=== PATIENT | female | born 1945 | race Caucasian/White ===

== ENCOUNTER → 2024-01-21 17:56 | Outpatient (REF) | payer MEDICARE, OTHER, SELFPAY | LOC: PAVMRI 17:56 | PROVIDERS: ATTENDING PHYSICIAN Physician Assistant Surgical; FAMILY PHYSICIAN Family Medicine | DX: M25.552 Pain in left hip (principal) | CPT/HCPCS: 73721 ==

== ENCOUNTER → 2024-01-30 10:50 | Outpatient (REF) | payer MEDICARE, OTHER, SELFPAY ==
[2024-01-30 12:24] LABS: % Basophils 0.9 % (0-2); % Eosinophils 3.7 % (0-6); % Immature Granulocytes 0.3 % (0-0.5); % Lymphocytes 18.7 % (20.5-51.1); % Monocytes 10.5 % (1.7-9.3); % Neutrophils 65.9 % (42.2-75.2); Absolute Basophils 0.1 10^3/uL (0-0.2); Absolute Eosinophils 0.3 10^3/uL (0-0.7); Absolute Lymphocytes 1.5 10^3/uL (1.2-3.4); Absolute Monocytes 0.8 10^3/uL (0.1-0.6); Absolute Neutrophils 5.2 10^3/uL (1.4-6.5); Hematocrit 47.7 % (37.0-47.0); Hemoglobin 15.6 g/dL (12.0-16.0); Mean Corp Hgb Conc. 32.7 g/dL (33.0-37.0); Mean Corpuscular Hgb 30.7 pg (27.0-31.0); Mean Corpuscular Volume 93.9 fL (81.0-99.0); Mean Platelet Volume 9.4 fL (7.4-10.4); Nucleated Red Blood Cells % 0 %; Platelet Count 301 10^3/uL (130-400); Red Blood Cell Count 5.08 10^6/uL (4.20-5.40); Red Cell Dist. Width 12.6 % (11.5-14.5); White Blood Cell Count 7.8 10^3/uL (4.8-10.8)
[2024-01-30 12:52] LABS: ALT (SGPT) 28 U/L (0-35); AST (SGOT) 35 U/L (14-36); Albumin 4.6 g/dl (3.5-5.0); Alkaline Phosphatase 104 U/L (38-126); Blood Urea Nitrogen 24 mg/dl (7-17); Calcium 9.8 mg/dl (8.4-10.2); Carbon Dioxide 29 mmol/L (22-30); Chloride 101 mmol/L (98-107); Glucose 128 mg/dl (70-99); HDL Cholesterol 32 mg/dl; LDL Cholesterol, Calculated 71 mg/dl; Potassium 4.9 mmol/L (3.5-5.1); Sodium 139 mmol/L (135-145); Total Bilirubin 1.4 mg/dl (0.2-1.3); Total Cholesterol 159 mg/dl (50-199); Total Protein 7.5 g/dl (6.3-8.2); Triglyceride 282 mg/dl (10-149); Very Low Density Lipoprotein 56 mg/dl (0-30); eGFR > 60.00
[2024-01-30 13:49] LABS: Glycohemoglobin (HgbA1c) 6.2 % (4.0-5.6)
== END ==
LOC: REG 10:50
PROVIDERS: ATTENDING PHYSICIAN Physician Assistant; FAMILY PHYSICIAN Family Medicine
DX: R30.0 Dysuria (principal); I10 Essential (primary) hypertension; E78.1 Pure hyperglyceridemia; R73.03 Prediabetes; K21.9 Gastro-esophageal reflux disease without esophagitis; F51.01 Primary insomnia
CPT/HCPCS: 36415; 80053; 80061; 83036; 85025

== ENCOUNTER 2024-01-31 22:30 | Emergency (ER) | payer MEDICARE, OTHER, SELFPAY ==
[2024-01-31 22:32] VITALS: BP 175/96; BMI 24.1
[2024-01-31 22:46] LABS: Urine Albumin 1+ (Neg - Trace); Urine Bilirubin Negative (Negative); Urine Character Very Cloudy (Clear); Urine Color Yellow; Urine Glucose Negative (Negative); Urine Ketone Negative (Negative); Urine Leukocyte 2+ (Negative); Urine Nitrite Negative (Negative); Urine Occult Blood 4+ (Negative); Urine Specific Gravity 1.025 (<1.030); Urine Urobilinogen Negative (Neg - 1+)
[2024-01-31 22:52] LABS: Urine Bacteria Few (Negative); Urine Red Blood Cell 50-60 /HPF (0-2)
[2024-02-01 00:12] VITALS: BP 136/79
--- NOTE | 2024-02-01 00:53 | ED.GENMED ---
History of Present Illness
General
Chief Complaint: Urinary Symptoms
Source: patient
Exam Limitations: none
Time Seen by Provider: 02/01/24 00:23
History of Present Illness
History of Present Illness:
This is a 78 year old female that comes in with c/o urinary frequency. States that they were at a picnic and last evening around 7pm she started with urinary burning and frequency. States that she also has this pressure feeling. States that she
just had a UTI one month ago and was on Macrobid. Denies any fever, chills, chest pain, SOB, abd pain, nausea, vomiting, diarrhea, headache, dizziness.
Past History
Past History
ED Past Medical History: Negative Asthma, HTN, Hypercholesterolemia or NIDDM
ED Past Surgical History: Gynecological (D&C) and Tonsilectomy
Social History
Tobacco: Non-smoker
Alcohol: Occasional
Drug: None
Personal:
Living: with family
Employment: Retired
Family History
Family History: Hypertension
Review of Systems
Review of Systems
All Other Systems: ROS reviewed and negative except as documented in HPI and ROS
Constitutional: Reports no symptoms; Denies fever or chills
EENT: Reports no symptoms
Respiratory: Reports no symptoms; Denies cough or trouble breathing
Cardiac: Reports no symptoms; Denies chest pain
ABD/GI: Reports no symptoms; Denies abdominal pain, nausea, vomiting or diarrhea
: Reports dysuria, frequency and urgency
Musculoskeletal: Reports no symptoms
Skin: Reports no symptoms
Neurological: Reports no symptoms; Denies dizzy or headache
Psychiatric: Reports no symptoms
Phy Exam
General Physical Exam
General Presentation: well appearing and no apparent distress
General age: appears stated age
General Skin: warm and dry
General Habitus: elderly
General Mental: alert
General Hydration: appears well hydrated
ENT Exam
ENT Exam: TM's normal, pharynx normal and neck supple
Eye Exam
Eye Exam: EOMI
Cardiovascular Exam
Cardiovascular Exam: regular rate/rhythm, no edema, no murmur and normal peripheral pulses
Pulmonary Exam
Pulmonary Exam: lungs clear, no respiratory distress, no rales, chest non tender, no crackles, no rhonchi, no wheezing and no cough
Gastrointestinal Exam
Gastrointestinal Exam: normal bowel sounds, non tender, soft, no organomegaly, no pulsatile mass and non distended
Musculoskeletal Exam
Musculoskeletal Exam: full ROM and no edema
Skin Exam
Skin Exam: normal color, warm/dry, no rash and no petechia
Psychiatric Exam
Psychiatric Exam: normal mood/affect
Course
Orders/Labs/Results
Orders:
Orders
01/31/24 22:34
Urinalysis Reflex To Culture Urgent
Date Specimen was Collected: 01/31/24
Time Specimen was Collected: 22:33
Urine Microscopic Reflex Cult Urgent
Urine Culture Urgent
MARICHUY Source: U
Specimen Description:
Date Specimen was Collected: 01/31/24
Time Specimen was Collected: 22:33
02/01/24 00:52
CT Abd/pel Without Iv Or Oral Urgent
Comment:
Reason For Exam: lOWER ABD PAIN PRESSURE, BLOOD IN THE URINE,
Abnormal Lab Results
01/31/24
22:34
Ur Occult Blood Reflex 4+ A
(Negative)
Leukocyte Esterase Rfl 2+ A
(Negative)
Urine RBC 50-60 A /HPF
(0-2)
Urine WBC (Reflex) 11-15 A /HPF
(0-5)
Urine Bacteria (Reflex) Few A
(Negative)
Urine Albumin (Reflex) 1+ A
(Neg - Trace)
Urine questionable for infection.
Vital Signs
Initial and Last Documented VS:
Initial Vital Signs
Temp Pulse Resp BP Pulse Ox
98 F 84 16 175/96 98
01/31/24 22:32 01/31/24 22:32 01/31/24 22:32 01/31/24 22:32 01/31/24 22:32
Last Documented Vital Signs
Temp Pulse Resp BP Pulse Ox
98 F 84 16 158/79 97
01/31/24 22:32 01/31/24 22:32 01/31/24 22:32 02/01/24 02:04 02/01/24 02:05
MDM/Problems Addressed
Differential Diagnosis Includes:
UTi, Renal calculus
MDM/Problems Addressed:
This is a 78 year old female that comes in with c/o urinary burning and pressure. States that this started last evening and she has burning with pressure. State that she just had a UTI last month and was on Macrobid.
Explained to patient that her urine is questionable and that there is a lot of blood. Will get CT to make sure no renal calculus that is causing her to get UTI.
CT cont- Probable perinephric cysts noted in the left kidney, incompletely evaluated without contrast. Atherosclerosis. Degenerative changes are noted on the spine and hips.
back into see patient. Explained that her CT is negative for any renal calculus. There is some diverticulosis but no diverticulitis. There is a left renal cyst. Will give patient an antibiotic for the UTI and encouraged her to increase her water
intake. Follow up with the PCP for repeat urine. Patient to return with any concerns.
Chronic conditions affecting care:
NA
Acute Exacerbation and/or Progression of Chronic Illness:
NA
*Radiology
Radiology exam reviewed: radiology read reviewed (CT night hawk- No evidence of obstructing ureteral calculus. No evidence of clinically significant hydronephrosis or hydroureter. Please note pyelonephritis is not well evaluated for on CT without
the administration of iodinated contrast. Bladder is partially contracted at time of examination and ), all reviewed NAD by ED Provider (CT cont- urinary tract infection is not excluded. If clinical suspicion for UTI, would recommend correlation
with urinalysis. No other evidence of acute CT abnormality to explain patient abd symptoms. Incidental findinigs: No CT evidence of cholecystitis. The appendix is not confidently identified, ) and other (CT cont-however no evidence of appendicitis
is seen. Extensive diverticulosis is noted of the distal colon without evidence of focal diverticulitis. The distal colon is contracted at time of examination which decreases sensitivity and specificity of examination. MIld distal colitis not
excluded. )
*Pulse Oximetry
Patient hypoxic: no
*EKG
Interpreted by ED Provider?: NA
Rate: EKG- N/A
*Body Shop Estimator Interpretation
Rate: Body Shop Estimator- N/A
*Critical Care Note
Total Time (30-74mins, 75-104mins- exclusive of procedures): Not Applicable
ED Attending Note
-
Portions of this chart may have been created with voice recognition software.� Occasional wrong word or��sound alike� substitutions may have occurred due to the inherent limitations of voice recognition software.
Discharge Plan
Departure
Patient Disposition: Home (Routine Discharge)
Date of Disposition: 02/01/24
Time of Disposition: 02:39
Patient with high blood pressure during this ER visit?: Yes
Condition: Good
Covid-19: Not Applicable
Discharge Problem:
Urinary tract infection
Instructions: Urinary Tract Infection, Adult (DC), BLOOD PRESSURE
Prescriptions:
No Action
loratadine 10 MG tablet
10 mg PO DAILY
multivitamin [Multi-Day] 1 EACH tablet
1 ea PO DAILY
lisinopril [Prinivil] 10 MG tablet
10 mg PO DAILY
zaleplon [Sonata] 5 MG capsule
5 mg PO HS PRN (Reason: sleep)
calcium-vitamin D3-vitamin K [Citracal-D3 Soft Chew] 1 EACH tablet,chewable
2 tab PO DAILY
Patient Comments:
patient sts takes 800mg
Referrals:
Monica Tapia MD [Family Provider] - Follow up in 1 week
Activity Restrictions/Additional Instructions:
As discussed, your CT is negative for any renal calculus. There is diverticulosis and a left renal cyst. You have been given your antibiotic here and this is a one time antibiotic and done. Please follow up with the family doctor for recheck and a
repeat urine in 1 week. IF YOU HAVE ANY FEVER, INCREASED BURNING WITH URINATION OR ANY OTHER CONCERNS PLEASE RETURN TO THE EMERGENCY ROOM.
Interventions
Interventions:
*Risk Screen - Suicide Last Done: 01/31/24 22:32
*General Assessment Last Done: 02/01/24 00:14
*Neglect/Abuse Screening Last Done: 01/31/24 22:32
*ED COVID-19 Vaccine History Last Done: 02/01/24 00:11
ED-Female Genitourinary Assessment Last Done: 02/01/24 00:11
Discharge Date and Time
Print Language: [id number]
[2024-02-01 02:04] VITALS: BP 158/79
[2024-02-01] MEDS: MONUROL 3 GM PO (02:50)
== END 2024-02-01 03:01 | disposition home or self-care (01) ==
LOC: EMR 22:30
PROVIDERS: Emergency Medicine; EMERGENCY PHYSICIAN Student in an Organized Health Care Education/Training Program; FAMILY PHYSICIAN Family Medicine
DX: N39.0 Urinary tract infection, site not specified (principal); Z82.49 Family history of ischemic heart disease and other diseases of the circulatory system; Z87.440 Personal history of urinary (tract) infections; Z90.49 Acquired absence of other specified parts of digestive tract
CPT/HCPCS: 99284; 74176; 81003; 81015; 87077; 87086

== ENCOUNTER → 2024-03-16 09:46 | Outpatient (REF) | payer MEDICARE, OTHER, SELFPAY | LOC: RAD 09:46 | PROVIDERS: ATTENDING PHYSICIAN Family Medicine | DX: S20.212A Contusion of left front wall of thorax, initial encounter (principal); R07.81 Pleurodynia | CPT/HCPCS: 71101 ==

== ENCOUNTER → 2024-08-12 14:17 | Outpatient (REF) | payer MEDICARE, OTHER, SELFPAY | LOC: WDC 14:17 | PROVIDERS: ATTENDING PHYSICIAN Obstetrics & Gynecology Gynecology; FAMILY PHYSICIAN Family Medicine | DX: M85.89 Other specified disorders of bone density and structure, multiple sites (principal); Z01.419 Encounter for gynecological examination (general) (routine) without abnormal findings; Z12.31 Encounter for screening mammogram for malignant neoplasm of breast | CPT/HCPCS: 77063; 77067 ==

== ENCOUNTER → 2025-01-21 10:54 | Outpatient (REF) | payer MEDICARE, OTHER, SELFPAY ==
[2025-01-21 11:34] LABS: % Eosinophils 4.7 % (0-6); % Immature Granulocytes 0.4 % (0-0.5); % Lymphocytes 20.4 % (20.5-51.1); % Neutrophils 62.5 % (42.2-75.2); Absolute Basophils 0.1 10^3/uL (0-0.2); Absolute Eosinophils 0.3 10^3/uL (0-0.7); Absolute Lymphocytes 1.4 10^3/uL (1.2-3.4); Absolute Monocytes 0.8 10^3/uL (0.1-0.6); Absolute Neutrophils 4.4 10^3/uL (1.4-6.5); Hematocrit 48.7 % (37.0-47.0); Hemoglobin 16.6 g/dL (12.0-16.0); Mean Corp Hgb Conc. 34.1 g/dL (33.0-37.0); Mean Corpuscular Hgb 31.7 pg (27.0-31.0); Mean Corpuscular Volume 92.9 fL (81.0-99.0); Mean Platelet Volume 9.3 fL (7.4-10.4); Nucleated Red Blood Cells % 0 %; Platelet Count 314 10^3/uL (130-400); Red Blood Cell Count 5.24 10^6/uL (4.20-5.40); Red Cell Dist. Width 12.2 % (11.5-14.5)
[2025-01-21 11:54] LABS: ALT (SGPT) 29 U/L (0-35); AST (SGOT) 30 U/L (14-36); Albumin 4.6 g/dl (3.5-5.0); Alkaline Phosphatase 126 U/L (38-126); Blood Urea Nitrogen 21 mg/dl (7-17); Calcium 10.1 mg/dl (8.4-10.2); Carbon Dioxide 28 mmol/L (22-30); Chloride 104 mmol/L (98-107); Glucose 155 mg/dl (70-99); HDL Cholesterol 27 mg/dl; LDL Cholesterol, Calculated 55 mg/dl; Potassium 4.8 mmol/L (3.5-5.1); Sodium 142 mmol/L (135-145); Total Bilirubin 1.2 mg/dl (0.2-1.3); Total Cholesterol 155 mg/dl (50-199); Total Protein 7.5 g/dl (6.3-8.2); Triglyceride 367 mg/dl (10-149); Very Low Density Lipoprotein 73 mg/dl (0-30); eGFR > 60.00
[2025-01-21 12:20] LABS: Glycohemoglobin (HgbA1c) 6.5 % (4.0-5.6)
[2025-01-21 12:23] LABS: TSH Reflex To Free T4 1.25 uIU/ml (0.47-4.68)
== END ==
LOC: REG 10:54
PROVIDERS: ATTENDING PHYSICIAN Family Medicine
DX: I10 Essential (primary) hypertension (principal); R73.03 Prediabetes; R53.82 Chronic fatigue, unspecified; R68.2 Dry mouth, unspecified; E78.1 Pure hyperglyceridemia
CPT/HCPCS: 36415; 80053; 80061; 83036; 84443; 85025